=== PATIENT | female | born 1930 | race Caucasian/White ===

== ENCOUNTER 2017-01-21 06:13 | Inpatient (IN) | payer OTHER ==
[~2017-01-21] VITALS: Ht 157.5 cm; Wt 61.8 kg
--- NOTE | ~2017-01-21 | EKG ---
[address] [address] ELECTROCARDIOGRAM REPORT Name: YAZMIN SPIVEY Room #: 303-P ADM IN M.R.#: [id number] Admission: 01/21/17 Attend Phys: Merlin Hernandez MD Discharge: Date of : 30 Report #: [id number] THIS REPORT FOR: //name// [facility] ED Test Date: 2017-01-21 Test Time: 06:19:57 Pat Name: YAZMIN SPIVEY Department: Room: [facility] Gender: F [employer]: JAMI : 1930 Requested By: Flavia Wilder Order Number: [id number] MD: Gentry Nevarez Measurements Intervals [place] Rate: 82 P: 67 NE: 159 QRS: 3 QRSD: 101 T: 45 QT: 362 QTc: 423 Interpretive Statements Sinus rhythm Probable left atrial enlargement Abnormal inferior Q waves Baseline wander in lead(s) V3 No previous ECG available for comparison Electronically Signed On 01-24-2017 12:49:22 CDT by Gentry Nevarez [email or web address] <ELECTRONICALLY SIGNED> By: Gentry Nevarez MD 01/24/17 1249 8 8 Gentry Nevarez MD /TAE
--- NOTE | ~2017-01-21 | 2DMMODE ---
[facility] [employer] [place] [address] 2 D/M-MODE ECHOCARDIOGRAM Name: SPIVEYYAZMIN Room #: 303-P [facility] [place] [facility]#: [id number] Admission: 01/21/17 Attend Phys: Shar Paul, Discharge: Date of : 30 Date of Service: 01/21/17 1635 Report #: [id number] THIS REPORT FOR: //name// APPROVED REPORT EXAM: Comprehensive 2D, Doppler, and color-flow Echocardiogram Patient Location: Bedside Blood Pressure: 165/101 mmHg HR: 74 bpm Other Information Study Quality: Adequate Indications Hypertension/HDD Chest Pain Syncope 2D Dimensions RVDd: 35.92 mm LVEF(%): 51.94 (>50%) IVSd: 8.10 (7-11mm) LVOT Diam: 20.32 (18-24mm) LVDd: 35.38 mm PWd: 9.23 (7-11mm) Ascending Aorta: 28.27 mm LVDs: 26.20 (25-40mm) IVC: 14.00 mm Aortic Root: 28.00 mm Cosme's LVEF: 51.94 % Volumes Left Atrial Volume (Systole) Single Plane 4CH: 22.18 mL Single Plane 2CH: 23.29 mL LA ESV Index: 15.00 mL/m2 Aortic Valve AoV Peak Vahe.: 1.30 m/s AO Peak Gr.: 6.80 mmHg LV Max P.09 mmHg LV Max: 1.23 m/s Mitral Valve MV PHT: 71.69 ms MV E Max Vahe.: 0.84 m/s E/A Ratio: 0.8 MV A Vahe.: 1.12 m/s MV Decel. Time: 247.21 ms [facility] [address] [place] [address] 2 D/M-MODE ECHOCARDIOGRAM Name: YAZMIN SPIVEY Room #: 303-P [facility] [place] [facility]#: [id number] Admission: 01/21/17 Attend Phys: Shar Paul, Discharge: Date of : 30 Date of Service: 01/21/17 1635 Report #: [id number] Pulmonary Valve PV Peak Vahe.: 0.81 m/s PV Peak Gr.: 2.62 mmHg Tricuspid Valve TR Peak Vahe.: 2.42 m/s RAP Estimate: 5.00 mmHg TR Peak Gr.: 23.38 mmHg Left Ventricle The left ventricle is normal size. There is normal LV segmental wall motion. There is normal left ventricular wall thickness. Left ventricular systolic function is normal. The left ventricular ejection fraction is within the normal range. LVEF is 60-65%. Grade I - abnormal relaxation pattern. Right Ventricle The right ventricle is normal size. The right ventricular systolic function is normal. Atria The left atrium size is normal. The right atrium size is normal. Aortic Valve The aortic valve is normal in structure. Mild aortic regurgitation. There is no aortic valvular stenosis. Mitral Valve The mitral valve is normal in structure. Mild mitral regurgitation. Tricuspid Valve The tricuspid valve is normal in structure. There is mild tricuspid regurgitation. The right atrial pressure is estimated at 5 mmHg. There is no pulmonary hypertension. Pulmonic Valve The pulmonary valve is normal in structure. There is no pulmonic valvular regurgitation. Great Vessels The aortic root is normal in size. IVC is normal in size and collapses >50% with inspiration. Pericardium There is no pericardial effusion. [facility] [address] [place] [address] 2 D/M-MODE ECHOCARDIOGRAM Name: YAZMIN SPIVEY Jaycee Room #: 303-P [facility] [place] [facility]#: [id number] Admission: 01/21/17 Attend Phys: Shar Paul, Discharge: Date of : 30 Date of Service: 01/21/17 1635 Report #: [id number] <Conclusion> The left ventricle is normal size. LVEF is 60-65%. Mild aortic regurgitation. Mild mitral regurgitation. <ELECTRONICALLY SIGNED> By: Eduardo Rivera MD 01/21/17 1635 1635 1635 Eduardo Rivera MD /INF
[2017-01-21 06:16] VITALS: BP 182/100
[2017-01-21 06:52] LABS: URINE BILIRUBIN NEGATIVE (Negative); URINE BLOOD NEGATIVE (Negative); URINE COLOR YELLOW; URINE GLUCOSE-RANDOM* NEGATIVE (Negative); URINE KETONES NEGATIVE (Negative); URINE LEUKOCYTES-REFLEX NEGATIVE (Negative); URINE PROTEIN (DIPSTICK) NEGATIVE (Negative); URINE SPECIFIC GRAVITY 1.015 (1.003-1.035); URINE UROBILINOGEN 0.2 E.U./dl (0.2-1.0)
[2017-01-21] MEDS ORDERED: COZAAR 50 MG TA50 M2 PO (06:52)
[2017-01-21] MEDS ORDERED: LEVOTHYROXIN0.075 MG PO (06:53)
[2017-01-21] MEDS ORDERED: ALBUTEROL2.5 MG/3 M INH (06:53)
[2017-01-21 06:55] LABS: ABSOLUTE NEUTROPHILS 3.7 thou/uL (1.4-8.2); BASOPHILS 0.6 % (0.0-2.0); EOSINOPHILS 1.9 % (0.0-3.0); HEMOGLOBIN 14.8 gm/dL (12.0-15.0); LYMPHOCYTES 32.6 % (24.0-44.0); MANUAL DIFF NO; MCH 33.2 pg (26.0-34.0); MCHC 34.6 g/dL (28.0-37.0); MCV 95.9 fL (80.0-100.0); PLATELET COUNT 249 thou/uL (150-400); POLYS 58.9 % (36.0-66.0); RBC 4.48 mil/uL (4.20-5.00); WBC 6.2 thou/uL (4.0-11.0)
[2017-01-21 07:04] LABS: ANION GAP 10 mmol/L (7-16); BUN 21 mg/dL (7-18); CALCIUM 10.2 mg/dL (8.5-10.1); CHLORIDE 106 mmol/L (98-107); CO2 26 mmol/L (21-32); CREATININE 0.8 mg/dL (0.6-1.3); GLUCOSE 100 mg/dL (70-99); POTASSIUM 3.8 mmol/L (3.5-5.1); SODIUM 142 mmol/L (136-145)
[2017-01-21 07:17] LABS: NT-PRO BRAIN NAT PEPTIDE 65 pg/mL (<300); TROPONIN-I < 0.04 ng/mL (<0.04-0.07)
[2017-01-21 11:00] VITALS: BP 165/101
[2017-01-21 12:57] LABS: MAGNESIUM 2.1 mg/dL (1.8-2.4); PHOSPHORUS 3.5 mg/dL (2.5-4.9)
[2017-01-21] MEDS ORDERED: PROAIR RESPICL90 MCG IH (15:03)
[2017-01-21] MEDS ORDERED: ASPIR 8181 MG PO (15:04)
[2017-01-21] MEDS ORDERED: CALCIUM 600 +1 EAC1 PO (15:05)
[2017-01-21] MEDS ORDERED: KEFLEX250 MG PO (15:06)
[2017-01-21] MEDS ORDERED: PREMARIN VAGI42.5 G1 TOP (15:08)
[2017-01-21] MEDS ORDERED: PEPCID20 MG PO (15:09)
[2017-01-21] MEDS ORDERED: PROBIOTIC1 EAC1 PO (15:09)
[2017-01-21 16:00] VITALS: BP 124/72
[2017-01-21 20:32] VITALS: BP 97/53
[2017-01-22 00:06] VITALS: BP 108/69
[2017-01-22 04:28] VITALS: BP 143/76
[2017-01-22 05:29] LABS: ABSOLUTE NEUTROPHILS 3.6 thou/uL (1.4-8.2); BASOPHILS 0.9 % (0.0-2.0); EOSINOPHILS 2.5 % (0.0-3.0); HEMATOCRIT 41.2 % (37.0-47.0); HEMOGLOBIN 14.3 gm/dL (12.0-15.0); LYMPHOCYTES 37.2 % (24.0-44.0); MCH 33.5 pg (26.0-34.0); MCHC 34.7 g/dL (28.0-37.0); MCV 96.6 fL (80.0-100.0); PLATELET COUNT 236 thou/uL (150-400); POLYS 52.4 % (36.0-66.0); RBC 4.27 mil/uL (4.20-5.00); RDW 13.3 % (10.5-14.5); WBC 6.9 thou/uL (4.0-11.0)
[2017-01-22 05:35] LABS: MANUAL DIFF NO
[2017-01-22 05:58] LABS: CALCIUM 9.5 mg/dL (8.5-10.1); CREATININE 0.8 mg/dL (0.6-1.3); POTASSIUM 3.9 mmol/L (3.5-5.1)
[2017-01-22 06:21] LABS: CHOLESTEROL 204 mg/dL (<200); HDL CHOLESTEROL 77 mg/dL (>40); LDL CHOLESTEROL 112 mg/dL (<100); TC:HDL 2.6 Ratio (Not establshd); TRIGLYCERIDE 75 mg/dL (<150); VLDL 15 mg/dL (<40)
[2017-01-22 06:29] LABS: FOLIC ACID 19.9 ng/mL (8.6-58.9)
[2017-01-22 08:33] VITALS: BP 123/72
[2017-01-22 12:38] VITALS: BP 126/76
[2017-01-22] MEDS ORDERED: METAMUCIL PAC1 UDPKT PO (15:00)
[2017-01-22 15:06] LABS: FREE T4 1.35 ng/dL (0.82-1.77)
[2017-01-22 16:41] VITALS: BP 139/77
[2017-01-22 19:40] VITALS: BP 100/75
[2017-01-23 03:25] VITALS: BP 116/68
[2017-01-23 07:43] VITALS: BP 120/70
[2017-01-23 11:15] VITALS: BP 124/61
[2017-01-23 14:59] VITALS: BP 118/66
[2017-01-23 19:42] VITALS: BP 114/64
[2017-01-24 03:41] VITALS: BP 107/67
[2017-01-24 08:10] VITALS: BP 133/64
[2017-01-24 13:28] VITALS: BP 119/62
[2017-01-24 17:34] VITALS: BP 104/52
[2017-01-24 19:51] VITALS: BP 107/63
== END 2017-01-24 22:00 | disposition short-term general hospital (02) | DRG 305 ==
LOC: ER 06:13 → 3N 09:27 → EROBS 09:27 → 3N 10:58
PROVIDERS: Emergency Medicine; Family Medicine; Psychiatry & Neurology Neurology
DX: I10 Essential (primary) hypertension (principal); J98.11 Atelectasis; R07.89 Other chest pain; E03.9 Hypothyroidism, unspecified; R22.0 Localized swelling, mass and lump, head; Z96.659 Presence of unspecified artificial knee joint; M19.90 Unspecified osteoarthritis, unspecified site; Z96.649 Presence of unspecified artificial hip joint; G93.9 Disorder of brain, unspecified; K21.9 Gastro-esophageal reflux disease without esophagitis; R00.2 Palpitations; R00.0 Tachycardia, unspecified; Z88.1 Allergy status to other antibiotic agents; Z88.8 Allergy status to other drugs, medicaments and biological substances; Z85.828 Personal history of other malignant neoplasm of skin; Z79.82 Long term (current) use of aspirin; Z79.899 Other long term (current) drug therapy; Z90.49 Acquired absence of other specified parts of digestive tract; Z86.718 Personal history of other venous thrombosis and embolism
CPT/HCPCS: 10096